=== PATIENT | female | born 1945 | race Hispanic/Latino ===

== ENCOUNTER 2022-10-27 02:36 | Emergency (ER) | payer OTHER, MEDICARE ==
[~2022-10-27] VITALS: Ht 157.5 cm; Wt 59.0 kg
[~2022-10-27 02:36] MED LIST: ALENDRONATE SOD70 MG; LOVAZA1 GM; VESICARE5 MG
[2022-10-27 03:11] LABS: BASOPHILS # (AUTO) 0.1 (0.0-0.1); BASOPHILS % 0.7 % (0.0-1.0); EOSINOPHILS # (AUTO) 0.2 (0.0-0.4); EOSINOPHILS % 1.9 % (0.0-6.0); HEMATOCRIT 36.5 % (34.2-44.1); HEMOGLOBIN 11.2 g/dL (12.0-16.0); LYMPHOCYTES # (AUTO) 2.6 (1.0-3.2); LYMPHOCYTES % 32.8 % (18.0-39.1); MEAN CORPUSCULAR HEMOGLOBIN 28.6 pg (28-32); MEAN CORPUSCULAR HGB CONC 30.7 g/dL (31-35); MEAN CORPUSCULAR VOLUME 93.4 fL (81-99); MONOCYTES # (AUTO) 0.5 (0.2-0.8); MONOCYTES % 6.1 % (4.4-11.3); NEUTROPHILS # (AUTO) 4.7 (2.1-6.9); NEUTROPHILS % 58.3 % (38.7-80.0); PLATELET COUNT 582 x10e3/uL (140-360); RED BLOOD COUNT 3.91 x10e6/uL (3.6-5.1); RED CELL DISTRIBUTION WIDTH 13.9 % (11.7-14.4)
[2022-10-27 03:24] LABS: ANION GAP 17.8 mmol/L (8-16); CALCIUM 9.5 mg/dL (8.4-10.2); CREATININE, SERUM 0.66 mg/dL (0.57-1.11); POTASSIUM 3.8 mmol/L (3.5-5.1)
[2022-10-27] MEDS ORDERED: MELOXICAM7.5 MG PO (03:31)
[2022-10-27 03:40] VITALS: BP 167/80
[2022-10-27] MEDS ORDERED: KETOROLAC TROMETHAMINE 30 MG/ML VIAL IV STA (03:41)
[2022-10-27] MEDS ORDERED: KETOROLAC TROMETHAMINE 30 MG/ML VIAL ONE (03:58)
== END 2022-10-27 04:10 | disposition home or self-care (01) ==
LOC: ER 02:40
DX: M79.605 Pain in left leg (principal); M79.604 Pain in right leg; M19.09 Primary osteoarthritis, other specified site; D64.9 Anemia, unspecified; E78.00 Pure hypercholesterolemia, unspecified
CPT/HCPCS: 36415; 80048; 82550; 85025; 99283; J1885

== ENCOUNTER 2022-11-02 06:13 | Emergency (ER) | payer OTHER, MEDICARE ==
[~2022-11-02] VITALS: Ht 157.5 cm; Wt 50.3 kg
[~2022-11-02 06:13] MED LIST changes: +MELOXICAM7.5 MG PO
[2022-11-02] MEDS ORDERED: ROPINIROLE HCL0.5 MG PO (08:23)
== END 2022-11-02 08:57 | disposition home or self-care (01) ==
LOC: ER 06:20
DX: M79.605 Pain in left leg (principal); M79.604 Pain in right leg; E78.5 Hyperlipidemia, unspecified; E78.00 Pure hypercholesterolemia, unspecified; Z79.1 Long term (current) use of non-steroidal anti-inflammatories (NSAID); Z79.899 Other long term (current) drug therapy; Z86.2 Personal history of diseases of the blood and blood-forming organs and certain disorders involving the immune mechanism
CPT/HCPCS: 73522; 93925; 93970; 99284